=== PATIENT | female | born 2000 | race Two or more races ===

== ENCOUNTER 2020-03-29 10:47 | Emergency (ER) | payer BC, MEDICAID ==
[~2020-03-29] VITALS: Ht 160 cm; Wt 64.0 kg
[2020-03-29 10:55] VITALS: BP 126/75
--- NOTE | 2020-03-29 10:58 | NUR ---
PT SENT TO LOBBY TO WAIT FOR MSE.
--- NOTE | 2020-03-29 11:01 | NUR ---
20/F presents to ED with complaints of right elbow pain x1 day. Pt states she had a trip and fall yesterday and landed on her right arm. Pt c/o 8/10 pain, limited ROM d/t pain. CMS intact. + 2 radial pulses. Moderate swelling to right elbow. Pt took Motrin this morning for pain.
--- NOTE | 2020-03-29 12:46 | NUR ---
3 inch orthoglass used for posterior long arm splint on right arm. Sling adjusted to patient and placed over splint. PMSC's assessed and WNL. Patient tolerated splint well
[2020-03-29 13:26] VITALS: BP 126/75
--- NOTE | 2020-03-29 13:26 | NUR ---
Patient discharged with v/s stable. Written and verbal after care instructions given and explained. Patient alert, oriented and verbalized understanding of instructions. Ambulatory with steady gait. All questions addressed prior to discharge. ID band removed. Patient advised to follow up with PMD. Referral to Dr. Chapman for orthopedics. Pt advised to follow up with PCP if insurance does not cover the referral. CD given to pt with images. Rx of Ibuprofen and Swain given. Patient educated on indication of medication including possible reaction and side effects. Opportunity to ask questions provided and answered.
== END 2020-03-29 13:26 | disposition home or self-care (01) ==
LOC: MED 10:47
DX: S52.121A Displaced fracture of head of right radius, initial encounter for closed fracture (principal); W19.XXXA Unspecified fall, initial encounter; Y93.51 Activity, roller skating (inline) and skateboarding; Y92.89 Other specified places as the place of occurrence of the external cause; Y99.8 Other external cause status
CPT/HCPCS: 29105; 73080; 99283